=== PATIENT | male | born 1940 | race Caucasian/White ===

== ENCOUNTER 2023-03-19 03:11 | Observation (INO) | payer OTHER ==
[2023-03-19] MEDS ORDERED: DIPHTH,PERTUSS(ACELL),TET 0.5 ML DISP.SYRIN IM ONE (03:42)
[2023-03-19 05:18] LABS: URINE APPEARANCE CLEAR; URINE BILIRUBIN NEGATIVE (NEGATIVE); URINE COLOR YELLOW; URINE GLUCOSE (UA) NEGATIVE (NEGATIVE); URINE KETONE NEGATIVE (NEGATIVE); URINE LEUK ESTERASE NEGATIVE (NEGATIVE); URINE NITRITE NEGATIVE (NEGATIVE); URINE PROTEIN NEGATIVE (NEGATIVE)
[2023-03-19 05:26] LABS: CALCIUM 8.5 mg/dL (8.5-10.1)
[2023-03-19 05:27] LABS: ALBUMIN 3.6 g/dl (3.4-5.0); BLOOD UREA NITROGEN 26.3 mg/dL (7-18); MAGNESIUM 2.1 mg/dL (1.8-2.4)
[2023-03-19 05:30] LABS: CREATININE 1.4 mg/dL (0.55-1.3)
[2023-03-19 05:32] LABS: BILIRUBIN,TOTAL 0.6 mg/dL (0.2-1); TOT PROT 6.9 g/dl (6.4-8.2)
[2023-03-19 06:50] LABS: INR 1.97 (0.83-1.09); PROTHROMBIN TIME (PATIENT) 22.7 SEC (9.7-13.0)
[2023-03-19 06:52] LABS: BASO % 1.2 % (0-2.0); EOS % 1.9 % (0-4.5); HEMATOCRIT 43.7 % (35.4-49); HEMOGLOBIN 14.9 GM/dL (11.7-16.9); LYMPH % 14.2 % (8-40); MCH 29.3 pg (25.7-33.7); MCHC 34.2 g/dl (32.0-35.9); MEAN CELL VOLUME 85.7 fl (80-96); MEAN PLT VOLUME 8.8 fl (7.5-11.1); MONO % 6.8 % (3.8-10.2); NEUT % 75.9 % (42.8-82.8); PLATELET COUNT 172 10^3/uL (134-434); RDW 15.8 % (11.9-15.9)
[2023-03-19 06:52] LABS: BASO % 0.7 % (0-2.0); EOS % 2.1 % (0-4.5); HEMOGLOBIN 13.6 GM/dL (11.7-16.9); LYMPH % 13.3 % (8-40); MCH 29.1 pg (25.7-33.7); MEAN CELL VOLUME 85.6 fl (80-96); MEAN PLT VOLUME 8.3 fl (7.5-11.1); NEUT % 75.9 % (42.8-82.8); PLATELET COUNT 168 10^3/uL (134-434); RBC 4.67 M/mm3 (4.00-5.60); RDW 15.9 % (11.9-15.9); WHITE BLOOD COUNT 7.9 K/mm3 (4.0-10.0)
[2023-03-19 06:59] LABS: POTASSIUM 4.7 mmol/L (3.5-5.1)
[2023-03-19 07:00] LABS: CALCIUM 8.2 mg/dL (8.5-10.1)
[2023-03-19 07:01] LABS: ALBUMIN 3.2 g/dl (3.4-5.0); BLOOD UREA NITROGEN 28.3 mg/dL (7-18)
[2023-03-19 07:04] LABS: CREATININE 1.2 mg/dL (0.55-1.3)
[2023-03-19 07:05] LABS: BILIRUBIN,TOTAL 0.5 mg/dL (0.2-1); TOT PROT 6.1 g/dl (6.4-8.2)
[2023-03-19] MEDS ORDERED: ACETAMINOPHEN 325 MG TABLET (FP) PO PRN (10:45)
[2023-03-19] MEDS ORDERED: traZODone HCL 50 MG TABLET (FP) PO PRN (11:07)
[2023-03-19] MEDS: METOPROLOL TARTRATE 25 MG TABLET (FP) PO SCH ×2 (11:42→21:51)
[2023-03-19] MEDS: LOSARTAN POTASSIUM 25 MG TABLET PO SCH (11:42)
[2023-03-19] MEDS: INSULIN SLIDING SCALE (NOVOLOG) 1 VIAL SQ SCH ×3 (12:41→21:53)
[2023-03-19 20:43] VITALS: BMI 27.3
[2023-03-19] MEDS: MELATONIN 1 MG TABLET PO SCH (21:51)
[2023-03-19] MEDS: MONTELUKAST NA 10 MG TABLET PO SCH (21:51)
[2023-03-19] MEDS: MEMANTINE HCL 10 MG TABLET (FP) PO SCH (21:51)
[2023-03-20] MEDS: INSULIN SLIDING SCALE (NOVOLOG) 1 VIAL SQ SCH ×4 (06:06→22:42)
[2023-03-20] MEDS: metFORMIN HCL 500 MG TABLET (FP) PO SCH (06:08)
[2023-03-20] MEDS ORDERED: INSULIN (NOVOLOG) ASPART 100 UNITS/ML 10ML VIAL ONE (09:08)
[2023-03-20] MEDS: METOPROLOL TARTRATE 25 MG TABLET (FP) PO SCH ×2 (10:51→22:41)
[2023-03-20] MEDS: PANTOPRAZOLE 20 MG TABLET PO SCH (10:52)
[2023-03-20] MEDS: FINASTERIDE 5 MG TABLET (FP) PO SCH (10:52)
[2023-03-20] MEDS: MEMANTINE HCL 10 MG TABLET (FP) PO SCH ×2 (10:52→22:41)
[2023-03-20] MEDS: FOLIC ACID 1 MG TABLET (FP) PO SCH (10:52)
[2023-03-20] MEDS: MULTIVITAMINS (DAILY MVI) TABLET (FP) PO SCH (10:52)
[2023-03-20] MEDS: DONEPEZIL HCL 10 MG TABLET (FP) PO SCH (10:52)
[2023-03-20] MEDS: LOSARTAN POTASSIUM 25 MG TABLET PO SCH (10:52)
[2023-03-20] MEDS: MELATONIN 1 MG TABLET PO SCH (22:41)
[2023-03-20] MEDS: MONTELUKAST NA 10 MG TABLET PO SCH (22:42)
[2023-03-21] MEDS: metFORMIN HCL 500 MG TABLET (FP) PO SCH (06:05)
[2023-03-21] MEDS: INSULIN SLIDING SCALE (NOVOLOG) 1 VIAL SQ SCH ×4 (06:38→23:26)
[2023-03-21] MEDS: METOPROLOL TARTRATE 25 MG TABLET (FP) PO SCH ×2 (10:29→22:41)
[2023-03-21] MEDS: MEMANTINE HCL 10 MG TABLET (FP) PO SCH ×2 (10:29→22:41)
[2023-03-21] MEDS: DONEPEZIL HCL 10 MG TABLET (FP) PO SCH (10:29)
[2023-03-21] MEDS: PANTOPRAZOLE 20 MG TABLET PO SCH (10:29)
[2023-03-21] MEDS: MULTIVITAMINS (DAILY MVI) TABLET (FP) PO SCH (10:29)
[2023-03-21] MEDS: FOLIC ACID 1 MG TABLET (FP) PO SCH (10:29)
[2023-03-21] MEDS: FINASTERIDE 5 MG TABLET (FP) PO SCH (10:29)
[2023-03-21] MEDS: LOSARTAN POTASSIUM 25 MG TABLET PO SCH (10:29)
[2023-03-21] MEDS: MONTELUKAST NA 10 MG TABLET PO SCH (22:41)
[2023-03-21] MEDS: MELATONIN 1 MG TABLET PO SCH (22:41)
[2023-03-21] MEDS ORDERED: LOSARTAN POTASSIUM 25 MG TABLET PO SCH (23:10)
[2023-03-22] MEDS: INSULIN SLIDING SCALE (NOVOLOG) 1 VIAL SQ SCH ×2 (06:00→11:57)
[2023-03-22] MEDS: metFORMIN HCL 500 MG TABLET (FP) PO SCH (06:00)
[2023-03-22] MEDS: FINASTERIDE 5 MG TABLET (FP) PO SCH (09:30)
[2023-03-22] MEDS: PANTOPRAZOLE 20 MG TABLET PO SCH (09:30)
[2023-03-22] MEDS: DONEPEZIL HCL 10 MG TABLET (FP) PO SCH (09:30)
[2023-03-22] MEDS: MULTIVITAMINS (DAILY MVI) TABLET (FP) PO SCH (09:30)
[2023-03-22] MEDS: METOPROLOL TARTRATE 25 MG TABLET (FP) PO SCH (09:31)
[2023-03-22] MEDS: FOLIC ACID 1 MG TABLET (FP) PO SCH (09:31)
[2023-03-22] MEDS: MEMANTINE HCL 10 MG TABLET (FP) PO SCH (09:31)
[2023-03-22 14:20] VITALS: BP 134/66; PULSE 56; RESP 20; TEMP 97.6
[2023-03-22] MEDS ORDERED: RIVAROXABAN 15 MG TABLET PO SCH (18:00)
== END 2023-03-22 15:51 ==
LOC: JER 03:11 → JERBED 08:06 → J7W 18:52
PROVIDERS: ADMIT Internal Medicine; ATTEND Internal Medicine
PROC: 3E0234Z Introduction of Serum, Toxoid and Vaccine into Muscle, Percutaneous Approach (ICD-10-PCS; principal; 2023-03-19)
DX: S01.111A Laceration without foreign body of right eyelid and periocular area, initial encounter (principal); W06.XXXA Fall from bed, initial encounter; Y93.89 Activity, other specified; F03.90 Unspecified dementia, unspecified severity, without behavioral disturbance, psychotic disturbance, mood disturbance, and anxiety; Y92.092 Bedroom in other non-institutional residence as the place of occurrence of the external cause; J44.9 Chronic obstructive pulmonary disease, unspecified; K21.9 Gastro-esophageal reflux disease without esophagitis; E78.5 Hyperlipidemia, unspecified; I48.91 Unspecified atrial fibrillation; N40.0 Benign prostatic hyperplasia without lower urinary tract symptoms; I50.9 Heart failure, unspecified; E11.9 Type 2 diabetes mellitus without complications; R29.6 Repeated falls; Z99.3 Dependence on wheelchair; Z79.01 Long term (current) use of anticoagulants; Z88.8 Allergy status to other drugs, medicaments and biological substances
CPT/HCPCS: 0241U-QW; 36415; 70450-TC; 71045-TC-FY; 72125-TC; 72170-TC-FY; 73502-TC-RT-FY; 80053; 81003; 82962; 83735; 84484; 85025; 85610; 85730; 86900; 87086; 90471; 90715; 93005; 93010; 99285-25; G0378

== ENCOUNTER 2023-06-23 13:39 | Inpatient (IN) | payer OTHER ==
[2023-06-23 15:58] LABS: BASO % 0.4 % (0-2.0); EOS % 0.2 % (0-4.5); HEMATOCRIT 42.6 % (35.4-49); HEMOGLOBIN 14.1 GM/dL (11.7-16.9); LYMPH % 6.1 % (8-40); MCH 30.2 pg (25.7-33.7); MCHC 33.1 g/dl (32.0-35.9); MEAN CELL VOLUME 91.2 fl (80-96); MONO % 8.1 % (3.8-10.2); NEUT % 85.2 % (42.8-82.8); PLATELET COUNT 146 10^3/uL (134-434); RBC 4.66 M/mm3 (4.00-5.60); RDW 15.3 % (11.9-15.9); WHITE BLOOD COUNT 8.7 K/mm3 (4.0-10.0)
[2023-06-23 16:56] LABS: LACTIC ACID 2.2 mmol/L (0.4-2.0)
[2023-06-23] MEDS ORDERED: VANCOMYCIN 1,000 MG in DEXTROSE 5%-WATER - 250 ML IVPB ONE (17:08)
[2023-06-23] MEDS ORDERED: PIPERACILLIN/TAZOB 3.375 GM 3.375 GM in DEXTROSE 5%-WATER - 50 ML IVPB ONE (17:09)
[2023-06-23] MEDS ORDERED: SODIUM CHLORIDE 0.9% 500 ML INFUS.BAG IV ONE (17:10)
[2023-06-23 17:28] LABS: ALBUMIN 3.3 g/dl (3.4-5.0); BILIRUBIN,TOTAL 0.4 mg/dL (0.2-1); BLOOD UREA NITROGEN 37.4 mg/dL (7-18); CALCIUM 8.6 mg/dL (8.5-10.1); CREATININE 1.3 mg/dL (0.55-1.3); MAGNESIUM 2.1 mg/dL (1.8-2.4); POTASSIUM 4.8 mmol/L (3.5-5.1); TOT PROT 6.4 g/dl (6.4-8.2)
[2023-06-23] MEDS ORDERED: PIPERACILLIN/TAZOB 3.375 GM 3.375 GM/50 ML BAG IVPB ONE (17:46)
[2023-06-23 18:36] LABS: EPI CELLS 3 /uL (0-25.1); HYALINE CASTS 1 /uL (0-3.1); URINE APPEARANCE CLOUDY; URINE BACTERIA >9,000 /uL (0-1359); URINE BILIRUBIN NEGATIVE (NEGATIVE); URINE COLOR DK YELLOW; URINE GLUCOSE (UA) NEGATIVE (NEGATIVE); URINE KETONE TRACE (NEGATIVE); URINE LEUK ESTERASE 3+ (NEGATIVE); URINE NITRITE POSITIVE (NEGATIVE); URINE PROTEIN 1+ (NEGATIVE); URINE RBC 17 /uL (0-23.9); URINE WBC 1391 /uL (0-25.8)
[2023-06-23] MEDS ORDERED: VANCOMYCIN 1 GRAM (PRE-DOCKED) 1,000 MG/250 ML BAG IVPB ONE (19:26)
[2023-06-23] MEDS ORDERED: VANCOMYCIN/WATER 1250 MG 1,250 MG/250 ML BAG IVPB ONE (20:40)
[2023-06-23] MEDS ORDERED: PIPERACILLIN/TAZOB 3.375 GM 3.375 GM in DEXTROSE 5%-WATER - 50 ML IVPB SCH ×2 (21:00→23:00)
[2023-06-23] MEDS: INSULIN SLIDING SCALE (NOVOLOG) 1 VIAL SQ SCH (22:41)
[2023-06-24] MEDS ORDERED: ACETAMINOPHEN INJECTION 100 ML IVPB ONE (04:35)
[2023-06-24] MEDS ORDERED: ACETAMINOPHEN 1000 MG/100 ML BAG IVPB ONE (04:58)
[2023-06-24 05:30] LABS: INR 1.63 (0.83-1.09); PROTHROMBIN TIME (PATIENT) 18.8 SEC (9.7-13.0)
[2023-06-24 05:32] LABS: ACTIVATED PTT 41.3 SECONDS (25.2-36.5)
[2023-06-24 05:37] LABS: BASO % 0.2 % (0-2.0); EOS % 0.2 % (0-4.5); HEMATOCRIT 46.5 % (35.4-49); HEMOGLOBIN 15.2 GM/dL (11.7-16.9); LYMPH % 7.4 % (8-40); MCH 30.2 pg (25.7-33.7); MCHC 32.7 g/dl (32.0-35.9); MEAN CELL VOLUME 92.5 fl (80-96); MEAN PLT VOLUME 8.7 fl (7.5-11.1); MONO % 3.8 % (3.8-10.2); NEUT % 88.4 % (42.8-82.8); PLATELET COUNT 184 10^3/uL (134-434); RBC 5.03 M/mm3 (4.00-5.60); RDW 15.5 % (11.9-15.9); WHITE BLOOD COUNT 8.3 K/mm3 (4.0-10.0)
[2023-06-24 05:58] LABS: POTASSIUM 4.2 mmol/L (3.5-5.1)
[2023-06-24 05:59] LABS: CALCIUM 8.7 mg/dL (8.5-10.1)
[2023-06-24 06:00] LABS: BLOOD UREA NITROGEN 35.5 mg/dL (7-18)
[2023-06-24 06:03] LABS: CREATININE 1.7 mg/dL (0.55-1.3); PHOSPHOROUS 3.7 mg/dL (2.5-4.9)
[2023-06-24] MEDS ORDERED: VANCOMYCIN/WATER 1250 MG 1,250 MG/250 ML BAG IVPB SCH ×2 (08:00)
[2023-06-24] MEDS ORDERED: ALBUTEROL SO4 2.5/IPRATROPIUM 0.5 INH SOL 3 ML VIAL.NEB. NEB PRN (08:13)
[2023-06-24] MEDS: INSULIN SLIDING SCALE (NOVOLOG) 1 VIAL SQ SCH ×4 (09:35→23:18)
[2023-06-24] MEDS: FINASTERIDE 5 MG TABLET (FP) PO SCH (10:43)
[2023-06-24] MEDS ORDERED: ACETAMINOPHEN 500 MG TABLET (FP) ONE (10:45)
[2023-06-24] MEDS: DONEPEZIL HCL 10 MG TABLET (FP) PO SCH (10:50)
[2023-06-24] MEDS: ACETAMINOPHEN 500 MG TABLET (FP) PO SCH (10:51)
[2023-06-24] MEDS: NYSTATIN 100,000 UNIT/GM TOPICAL CREAM 15 GM TUBE TP SCH (10:51)
[2023-06-24] MEDS ORDERED: CEFTRIAXONE 1 GM/50 ML BAG ONE (15:29)
[2023-06-24] MEDS: CEFTRIAXONE 1 GM in DEXTROSE 5%-WATER - 50 ML IVPB SCH (15:36)
[2023-06-24] MEDS ORDERED: DEXTROSE 50%-WATER 25 GM/50 ML DISP.SYRIN ONE (17:02)
[2023-06-24] MEDS ORDERED: DEXTROSE 50%-WATER - 25 GM/50 ML VIAL IVPUSH ONE (17:02)
[2023-06-24] MEDS: RIVAROXABAN 15 MG TABLET PO SCH (18:35)
[2023-06-24] MEDS ORDERED: PIPERACILLIN/TAZOB 3.375 GM 3.375 GM in DEXTROSE 5%-WATER - 50 ML IVPB SCH (23:00)
[2023-06-25] MEDS: NYSTATIN 100,000 UNIT/GM TOPICAL CREAM 15 GM TUBE TP SCH ×3 (03:15→21:57)
[2023-06-25] MEDS: ACETAMINOPHEN 500 MG TABLET (FP) PO SCH ×3 (03:18→21:59)
[2023-06-25] MEDS: INSULIN SLIDING SCALE (NOVOLOG) 1 VIAL SQ SCH ×4 (06:50→21:57)
[2023-06-25] MEDS: DONEPEZIL HCL 10 MG TABLET (FP) PO SCH (10:06)
[2023-06-25] MEDS: FINASTERIDE 5 MG TABLET (FP) PO SCH (10:06)
[2023-06-25] MEDS: CEFTRIAXONE 1 GM in DEXTROSE 5%-WATER - 50 ML IVPB SCH (10:06)
[2023-06-25] MEDS: METOPROLOL TARTRATE 25 MG TABLET (FP) PO SCH ×2 (13:59→21:57)
[2023-06-25] MEDS: RIVAROXABAN 15 MG TABLET PO SCH (18:06)
[2023-06-26] MEDS ORDERED: VANCOMYCIN/WATER FOR INJ (PEG) 1,000 MG/200 ML BAG IVPB ONE (08:56)
[2023-06-26] MEDS: METOPROLOL TARTRATE 25 MG TABLET (FP) PO SCH (09:05)
[2023-06-26] MEDS: ACETAMINOPHEN 500 MG TABLET (FP) PO SCH ×2 (09:05→21:50)
[2023-06-26] MEDS: CEFTRIAXONE 1 GM in DEXTROSE 5%-WATER - 50 ML IVPB SCH (09:05)
[2023-06-26] MEDS: DONEPEZIL HCL 10 MG TABLET (FP) PO SCH (09:06)
[2023-06-26] MEDS: FINASTERIDE 5 MG TABLET (FP) PO SCH (09:06)
[2023-06-26] MEDS: NYSTATIN 100,000 UNIT/GM TOPICAL CREAM 15 GM TUBE TP SCH (09:07)
[2023-06-26] MEDS: INSULIN SLIDING SCALE (NOVOLOG) 1 VIAL SQ SCH ×3 (12:04→21:58)
[2023-06-26] MEDS: METOPROLOL TARTRATE 50 MG TABLET (FP) PO SCH ×2 (12:05→21:50)
[2023-06-26] MEDS: RIVAROXABAN 15 MG TABLET PO SCH (17:09)
[2023-06-26] MEDS: MULTIVITAMINS THER W-MINERALS COMBO TABLET (FP) PO SCH (18:12)
[2023-06-26] MEDS: ASCORBIC ACID 250 MG TABLET (FP) PO SCH (18:12)
[2023-06-27] MEDS: NYSTATIN 100,000 UNIT/GM TOPICAL CREAM 15 GM TUBE TP SCH ×3 (06:15→22:52)
[2023-06-27] MEDS: INSULIN SLIDING SCALE (NOVOLOG) 1 VIAL SQ SCH ×5 (06:16→22:48)
[2023-06-27 06:49] LABS: BASO % 0.5 % (0-2.0); EOS % 2.3 % (0-4.5); HEMATOCRIT 38.7 % (35.4-49); HEMOGLOBIN 12.8 GM/dL (11.7-16.9); LYMPH % 13.9 % (8-40); MCH 29.8 pg (25.7-33.7); MEAN CELL VOLUME 90.2 fl (80-96); MONO % 7.6 % (3.8-10.2); NEUT % 75.7 % (42.8-82.8); PLATELET COUNT 160 10^3/uL (134-434); RBC 4.29 M/mm3 (4.00-5.60); WHITE BLOOD COUNT 6.8 K/mm3 (4.0-10.0)
[2023-06-27 07:11] LABS: CALCIUM 8.2 mg/dL (8.5-10.1)
[2023-06-27 07:12] LABS: ALBUMIN 2.8 g/dl (3.4-5.0); BLOOD UREA NITROGEN 38.6 mg/dL (7-18)
[2023-06-27 07:17] LABS: TOT PROT 5.8 g/dl (6.4-8.2)
[2023-06-27 08:04] LABS: BILIRUBIN,TOTAL 0.7 mg/dL (0.2-1)
[2023-06-27] MEDS: METOPROLOL TARTRATE 50 MG TABLET (FP) PO SCH (11:02)
[2023-06-27] MEDS: ACETAMINOPHEN 500 MG TABLET (FP) PO SCH ×2 (11:10→22:50)
[2023-06-27] MEDS: CEFTRIAXONE 1 GM in DEXTROSE 5%-WATER - 50 ML IVPB SCH (11:10)
[2023-06-27] MEDS: DONEPEZIL HCL 10 MG TABLET (FP) PO SCH (11:10)
[2023-06-27] MEDS: ASCORBIC ACID 250 MG TABLET (FP) PO SCH (11:11)
[2023-06-27] MEDS: FINASTERIDE 5 MG TABLET (FP) PO SCH (11:11)
[2023-06-27] MEDS: MULTIVITAMINS THER W-MINERALS COMBO TABLET (FP) PO SCH (11:11)
[2023-06-27] MEDS: RIVAROXABAN 15 MG TABLET PO SCH (17:43)
[2023-06-28] MEDS: ACETAMINOPHEN 500 MG TABLET (FP) PO SCH ×3 (04:32→22:25)
[2023-06-28] MEDS: INSULIN SLIDING SCALE (NOVOLOG) 1 VIAL SQ SCH ×4 (06:30→22:16)
[2023-06-28] MEDS: HYDROCHLOROTHIAZIDE 25 MG TABLET (FP) PO SCH (09:54)
[2023-06-28] MEDS: DONEPEZIL HCL 10 MG TABLET (FP) PO SCH (09:54)
[2023-06-28] MEDS: MULTIVITAMINS THER W-MINERALS COMBO TABLET (FP) PO SCH (09:55)
[2023-06-28] MEDS: CEFTRIAXONE 1 GM in DEXTROSE 5%-WATER - 50 ML IVPB SCH (09:55)
[2023-06-28] MEDS: ASCORBIC ACID 250 MG TABLET (FP) PO SCH (09:55)
[2023-06-28] MEDS: FINASTERIDE 5 MG TABLET (FP) PO SCH (09:55)
[2023-06-28] MEDS: NYSTATIN 100,000 UNIT/GM TOPICAL CREAM 15 GM TUBE TP SCH ×2 (17:52→22:18)
[2023-06-28] MEDS: RIVAROXABAN 15 MG TABLET PO SCH (17:53)
[2023-06-29] MEDS: INSULIN SLIDING SCALE (NOVOLOG) 1 VIAL SQ SCH ×4 (06:57→23:37)
[2023-06-29] MEDS: ACETAMINOPHEN 500 MG TABLET (FP) PO SCH ×2 (10:45→21:51)
[2023-06-29] MEDS: CEFTRIAXONE 1 GM in DEXTROSE 5%-WATER - 50 ML IVPB SCH (10:58)
[2023-06-29] MEDS: DONEPEZIL HCL 10 MG TABLET (FP) PO SCH (11:03)
[2023-06-29] MEDS: ASCORBIC ACID 250 MG TABLET (FP) PO SCH (11:03)
[2023-06-29] MEDS: FINASTERIDE 5 MG TABLET (FP) PO SCH (11:03)
[2023-06-29] MEDS: HYDROCHLOROTHIAZIDE 25 MG TABLET (FP) PO SCH (11:07)
[2023-06-29] MEDS: MULTIVITAMINS THER W-MINERALS COMBO TABLET (FP) PO SCH (11:08)
[2023-06-29] MEDS: NYSTATIN 100,000 UNIT/GM TOPICAL CREAM 15 GM TUBE TP SCH ×2 (11:09→21:53)
[2023-06-29 13:33] VITALS: BMI 22.7
[2023-06-29] MEDS: RIVAROXABAN 15 MG TABLET PO SCH (17:45)
[2023-06-30] MEDS: INSULIN SLIDING SCALE (NOVOLOG) 1 VIAL SQ SCH ×2 (06:44→12:25)
[2023-06-30 07:45] LABS: BASO % 0.6 % (0-2.0); EOS % 2.7 % (0-4.5); HEMATOCRIT 40.7 % (35.4-49); HEMOGLOBIN 13.7 GM/dL (11.7-16.9); LYMPH % 7.9 % (8-40); MCHC 33.5 g/dl (32.0-35.9); MEAN CELL VOLUME 89.4 fl (80-96); MONO % 8.3 % (3.8-10.2); NEUT % 80.5 % (42.8-82.8); PLATELET COUNT 194 10^3/uL (134-434); RBC 4.56 M/mm3 (4.00-5.60); WHITE BLOOD COUNT 6.5 K/mm3 (4.0-10.0)
[2023-06-30 07:57] LABS: ALBUMIN 2.9 g/dl (3.4-5.0)
[2023-06-30 07:58] LABS: BLOOD UREA NITROGEN 27.7 mg/dL (7-18); CALCIUM 8.4 mg/dL (8.5-10.1)
[2023-06-30 08:03] LABS: BILIRUBIN,TOTAL 0.4 mg/dL (0.2-1); TOT PROT 5.8 g/dl (6.4-8.2)
[2023-06-30] MEDS: CEFTRIAXONE 1 GM in DEXTROSE 5%-WATER - 50 ML IVPB SCH (11:35)
[2023-06-30] MEDS: ACETAMINOPHEN 500 MG TABLET (FP) PO SCH (11:36)
[2023-06-30] MEDS: MULTIVITAMINS THER W-MINERALS COMBO TABLET (FP) PO SCH (11:36)
[2023-06-30] MEDS: ASCORBIC ACID 250 MG TABLET (FP) PO SCH (11:37)
[2023-06-30] MEDS: DONEPEZIL HCL 10 MG TABLET (FP) PO SCH (11:37)
[2023-06-30] MEDS: NYSTATIN 100,000 UNIT/GM TOPICAL CREAM 15 GM TUBE TP SCH (11:37)
[2023-06-30] MEDS: FINASTERIDE 5 MG TABLET (FP) PO SCH (11:37)
[2023-06-30] MEDS: HYDROCHLOROTHIAZIDE 25 MG TABLET (FP) PO SCH (11:37)
[2023-06-30 14:18] VITALS: PULSE 93
[2023-06-30 15:18] VITALS: BP 145/94; RESP 19; TEMP 97.1
== END 2023-06-30 17:01 | DRG 689 ==
LOC: JER 13:39 → JERBED 18:22 → J4W 06-24 20:36
PROVIDERS: ADMIT Internal Medicine; ATTEND Internal Medicine
DX: N39.0 Urinary tract infection, site not specified (principal); J18.9 Pneumonia, unspecified organism; N17.9 Acute kidney failure, unspecified; L03.113 Cellulitis of right upper limb; J44.9 Chronic obstructive pulmonary disease, unspecified; I11.0 Hypertensive heart disease with heart failure; E78.5 Hyperlipidemia, unspecified; I50.9 Heart failure, unspecified; E11.9 Type 2 diabetes mellitus without complications; F03.90 Unspecified dementia, unspecified severity, without behavioral disturbance, psychotic disturbance, mood disturbance, and anxiety; N40.0 Benign prostatic hyperplasia without lower urinary tract symptoms; I48.91 Unspecified atrial fibrillation; L89.322 Pressure ulcer of left buttock, stage 2; I49.5 Sick sinus syndrome; B96.4 Proteus (mirabilis) (morganii) as the cause of diseases classified elsewhere
CPT/HCPCS: 0241U-QW; 36415; 71045-TC-FY; 80048; 80053; 81003; 82962; 83605; 83735; 84100; 84484; 85025; 85610; 85730; 87040; 87086; 87186; 87635; 93005; 93010; 93306-TC; 93971; 97116-GP; 97162-GP; 99285-25; G0480